=== PATIENT | male | born 1990 | race Caucasian/White ===

== ENCOUNTER 2020-04-27 15:26 | Inpatient (IN) | payer MEDICAID ==
[~2020-04-27] VITALS: Ht 177.8 cm; Wt 167.8 kg
[2020-04-27 17:49] LABS: BASOPHILS % 0.4 % (0.0-2.0); EOSINOPHILS % 1.8 % (0.0-5.0); HEMATOCRIT. 25.8 % (42.0-52.0); HEMOGLOBIN. 8.1 g/dL (14.0-18.0); LYMPHOCYTES % 14.6 % (20.0-50.0); MEAN CORPUSCULAR HEMOGLOBIN 25.7 pg (28.0-32.0); MEAN CORPUSCULAR VOLUME 82.2 fL (80.0-94.0); MEAN PLATELET VOLUME 9.1 fl (7.4-10.4); MONOCYTES % 7.7 % (2.0-8.0); NEUTROPHILS % 75.5 % (40.0-76.0); PLATELET 334 x1000/uL (130-400); RED BLOOD CELL COUNT 3.13 mill/uL (4.7-6.1); RED CELL DISTRIBUTION WIDTH 16.6 % (11.6-14.6)
[2020-04-27 17:55] LABS: CHLORIDE 103 mEq/L (98-107)
[2020-04-27 17:59] LABS: INR 1.3; PARTIAL THROMBOPLASTIN TIME 28.3 sec (23.4-31.0); PROTHROMBIN TIME 13.3 sec (9.6-11.0)
[2020-04-27] MEDS ORDERED: CEFEPIME 2,000 MG in DEXT 5% WATER 100 ML IV SCH (19:00)
[2020-04-27] MEDS ORDERED: WATER IV SCH (19:15)
[2020-04-27] MEDS ORDERED: ONDANSETRON HCL 4MG/2ML INJ IV PRN (19:15)
[2020-04-27] MEDS ORDERED: DEXT 5% IV SCH (19:15)
[2020-04-27] MEDS ORDERED: CEFEPIME IV SCH (19:15)
[2020-04-27] MEDS ORDERED: DEXTROSE 50% WATER 50ML SYRINGE IV PRN (19:45)
[2020-04-27] MEDS: CEFEPIME 1,000 MG in DEXTROSE 5% WATER 50 ML IV SCH (21:27)
[2020-04-27] MEDS: ENOXAPARIN 40MG/0.4ML SYR SUBCUT SCH (21:29)
[2020-04-27] MEDS: BLOOD SUGAR DIAGNOSTIC STRIP TEST SCH (21:38)
[2020-04-28] VITALS: BP 149/84
[2020-04-28] MEDS ORDERED: *PATIENT'S OWN MEDICATION STORAGE XX SCH (02:15)
[2020-04-28 04:00] VITALS: BP 121/78
[2020-04-28] MEDS: CEFEPIME 1,000 MG in DEXTROSE 5% WATER 50 ML IV SCH ×4 (06:12→21:10)
[2020-04-28] MEDS: BLOOD SUGAR DIAGNOSTIC STRIP TEST SCH ×4 (06:15→21:00)
[2020-04-28] MEDS: INSULIN LISPRO 100 UNITS/ML SUBCUT SCH ×5 (06:15→21:00)
[2020-04-28 08:00] VITALS: BP 133/78
[2020-04-28] MEDS: AMIODARONE HCL 200 MG TABLET PO SCH (08:20)
[2020-04-28] MEDS: SODIUM CHLORIDE 1000MG TABLET PO SCH ×2 (08:20→17:19)
[2020-04-28] MEDS: SERTRALINE HCL 25MG TABLET PO SCH (08:21)
[2020-04-28] MEDS ORDERED: LIDOCAINE HCL 1% 20ML VIAL (Pyxis) INJ ONE (08:51)
[2020-04-28] MEDS: ENOXAPARIN 40MG/0.4ML SYR SUBCUT SCH ×2 (10:54→21:10)
[2020-04-28 12:00] VITALS: BP 128/80
[2020-04-28 18:18] VITALS: BP_SYST 133; BP_SYST 140; BP_DIAS 78; BP_DIAS 92
[2020-04-28 20:00] VITALS: BP 137/81
[2020-04-28] MEDS ORDERED: HYDROCODONE/ACETAMINOPHEN 5/325MG TABLET PO PRN (21:30)
[2020-04-29] VITALS: BP 131/75
[2020-04-29 04:00] VITALS: BP 133/86
[2020-04-29] MEDS: CEFEPIME 1,000 MG in DEXTROSE 5% WATER 50 ML IV SCH (05:51)
[2020-04-29] MEDS: BLOOD SUGAR DIAGNOSTIC STRIP TEST SCH (07:10)
[2020-04-29] MEDS: INSULIN LISPRO 100 UNITS/ML SUBCUT SCH (07:10)
[2020-04-29 08:00] VITALS: BP 140/92
[2020-04-29] MEDS: SODIUM CHLORIDE 1000MG TABLET PO SCH (08:34)
[2020-04-29] MEDS: AMIODARONE HCL 200 MG TABLET PO SCH (08:34)
[2020-04-29] MEDS: SERTRALINE HCL 25MG TABLET PO SCH (08:34)
[2020-04-29] MEDS: ENOXAPARIN 40MG/0.4ML SYR SUBCUT SCH (08:34)
== END 2020-04-29 09:10 | disposition home or self-care (01) | DRG 206 ==
LOC: ER 15:26 → 8WST 18:36 → ENRESERV 20:59
PROVIDERS: ADMIT Internal Medicine; ATTEND Internal Medicine
PROC: 05H333Z Insertion of Infusion Device into Right Innominate Vein, Percutaneous Approach (ICD-10-PCS; principal; 2020-04-28)
PROC: B54MZZA Ultrasonography of Right Upper Extremity Veins, Guidance (ICD-10-PCS; 2020-04-28)
DX: T82.514A Breakdown (mechanical) of infusion catheter, initial encounter (principal); G82.50 Quadriplegia, unspecified; E66.01 Morbid (severe) obesity due to excess calories; F32.9 Major depressive disorder, single episode, unspecified; E11.69 Type 2 diabetes mellitus with other specified complication; M86.8X6 Other osteomyelitis, lower leg; E46 Unspecified protein-calorie malnutrition; D64.9 Anemia, unspecified; Z99.81 Dependence on supplemental oxygen; Z68.43 Body mass index [BMI] 50.0-59.9, adult; Y92.89 Other specified places as the place of occurrence of the external cause; Y84.8 Other medical procedures as the cause of abnormal reaction of the patient, or of later complication, without mention of misadventure at the time of the procedure
CPT/HCPCS: 36415; 71045; 76937; 80048; 82962; 83036; 85025; 93005; 99285; C1725; G0378; J0692; J1650; J1815; J3490; J7060